=== PATIENT | male | born 1960 | race Caucasian/White ===

== ENCOUNTER → 2016-08-08 11:08 | Outpatient (CLI) | payer BC | END | disposition home or self-care (01) | LOC: D.MRI 11:08 | DX: R26.9 Unspecified abnormalities of gait and mobility (principal); R41.9 Unspecified symptoms and signs involving cognitive functions and awareness ==

== ENCOUNTER 2017-07-09 11:05 | Observation (INO) | payer BC ==
[~2017-07-09] VITALS: Ht 182.9 cm; Wt 79.4 kg
--- NOTE | ~2017-07-09 | HEMODYNAMI ---
PATIENT:ADRY MARTINEZ MEDICAL RECORD: [id number] : 56 LOCATION:[address] ADMISSION DATE: 07/09/17 Generatedon:07/10/20177:50 Patient name: ADRY MARTINEZ Patient #: [id number] SSN: : 1960 Date of study: 07/10/2017 Page: Of Hemodynamic Procedure Report Patient Data Patient Demographics Procedure consent was obtained First Name: ADRY Gender: Male Last Name: JUAN : 1960 [facility] Initial: TOMA Age: 57 year(s) Patient #: [id number] Race: Unknown Additional ID: [id number] Contact details Address: [address] State: [place] City: [facility] Zip code: [address] Admission Admission Data Admission Date: 07/09/2017 Admission Time: 13:11 Room #: [facility] Lab Results Lab Result Date: 07/10/2017 Lab Result Time: 0:00 Biochemistry Name Units Result Min Max BUN mg/dl 22 --(----)-* 7 18 Creatinine mg/dl 1.6 --(----)-* 0.6 1.3 CBC Name Units Result Min Max Hemoglobin g/dl 12.1 *-(----)-- 13.5 17.5 Procedure Procedure Types Cath Procedure Diagnostic Procedure LHC LHC w/Coronaries Miscellaneous Procedures Moderate Sedation up to 15 minutes Procedure Description Procedure Date Procedure Date: 07/10/2017 Procedure Start Time: 7:33 Procedure End Time: 7:50 Procedure Staff Name Function Laci Spivey MD Performing Physician Abdi Faustin RT Monitor Berenice Shelton RT Scrub Todd Jade RN Nurse Procedure Data Cath Procedure Fluoroscopy Diagnostic fluoroscopy Total fluoroscopy Time: 1.6 time: 1.6 min min Diagnostic fluoroscopy Total fluoroscopy dose: 387 dose: 387 mGy mGy Contrast Material Contrast Material Type Amount (ml) Isovue 300 59 Entry Location Entry Primary Successful Side Size Upsize Upsize Entry Closure Succes sful Closure Location (Fr) 1 (Fr) 2 (Fr) Remarks Device Remarks Femoral Right 5 Fr Exoseal artery Estimated blood loss: 10 ml Diagnostic catheters Device Type Used For End Catheter Placement MULTIPACK JL 4.0 5Fr Procedure catheter MULTIPACK 3DRC 5Fr Procedure catheter MULTIPACK Pigtail 5 Fr Procedure catheter Procedure Complications No complications Procedure Medications Medication Administration Route Dosage Oxygen NC 2 l/min Lidocaine 2% added to field 20 Heparin Flush Bag added to field 2 bags (1000units/500ml NS) 0.9% NaCl I.V. 100 ml/hr Versed I.V. 1 mg Fentanyl I.V. 50 mcg Versed I.V. 1 mg Fentanyl I.V. 50 mcg Versed I.V. 0.5 mg Fentanyl I.V. 25 mcg Radial Cocktail added to field 1 syringe (Verapomil 2mg/Nitro 400mcg/Heparin 1500units) Hemodynamics Rest HGB: 12.1 (g/dl) Heart Rate: 63 (bpm) Pressure Samples Time Site Value (mmHg) Purpose Heart Use Rate(bpm) 7:44 LV 96/7,15 Snapshot 81 7:45 AO 101/64(82) Pullback 74 7:45 LV 106/8,19 Pullback 74 Gradients Valve Time Site 1 Site 2 Mean SEP/DFP Peak To Heart Use (mmHg) (sec/min) Peak Rate (mmHg) (bpm) Aortic 7:45 LV AO 7 16 5 74 106/8,19 101/64(82) Calculations Valve P-P Mean Valve Index Valve Source Name Gradient Area Flow (cm2) Aortic 5 7 5 7 Snapshots Pre Cath Intra NCS Post Cath Vital Signs Time Heart Resp SPO2 etCO2 NIBP Rhythm Pain Sedation Rate (ipm) (%) (mmHg) (mmHg) Status Level (bpm) 7:15:40 65 15 97 0 111/76(90) NSR 0 (11) 10(A) , No pain 7:20:16 65 17 99 34.6 115/76(92) NSR 0 (11) 10(A) , No pain 7:24:55 68 16 97 34.6 111/69(85) NSR 0 (11) 10(A) , No pain 7:29:33 71 14 96 0 110/71(80) NSR 0 (11) 10(A) , No pain 7:34:10 71 15 94 13.5 103/68(79) NSR 0 (11) 9(A) , No pain 7:38:47 69 15 95 37.6 103/69(85) NSR 0 (11) 9(A) , No pain 7:43:23 75 17 96 30.1 98/67(81) NSR 0 (11) 9(A) , No pain 7:47:58 73 16 94 12.8 106/67(78) NSR 0 (11) 10(A) , No pain Medications Time Medication Route Dose Verified Delivered Reason Notes Effectiveness by by 7:08:19 Oxygen NC 2 l/min Laci Buffie used for Patric Jade RN procedure 7:08:28 Lidocaine 2% added 20ml Laci Laci for local to vial Patric Spivey MD anesthetic field 7:08:34 Heparin Flush added 2 bags Laci Laci used for Bag to Patric Spivey MD procedure (1000units/500ml field NS) 7:08:44 0.9% NaCl I.V. 100 Laci Buffie Per ml/hr Patric Jade RN physician 7:10:11 Radial Cocktail added 1 Laci Buffie not used, (Verapomil to syringe Patric Jade RN femoral 2mg/Nitro field access 400mcg/Heparin obtained. 1500units) 7:24:10 Versed I.V. 1 mg Laci Buffie for Patric Jade RN sedation 7:24:17 Fentanyl I.V. 50 mcg Laci Buffie for Patric Jade RN sedation 7:28:52 Versed I.V. 1 mg Laci Buffie for Patric Jade RN sedation 7:28:56 Fentanyl I.V. 50 mcg Laci Buffie for Patric Jade RN sedation 7:35:00 Versed I.V. 0.5 mg Laci Buffie for Patric Jade RN sedation 7:35:06 Fentanyl I.V. 25 mcg Laci Buffie for Patric Jade RN sedation Procedure Log Time Note 6:57:07 Time tracking: Regular hours 6:57:12 Plan of Care:Hemodynamics will remain stable., Cardiac rhythm will remain stable., Comfort level will be maintained., Respiratory function will remain adequate., Patient/ family verbilizes understanding of procedure., Procedure tolerated without complication., Recovers from procedure without complications.. 6:57:14 Todd Jade RN sent for patient. Start room use. 6:58:10 H&P Date Dictated: 07/09/2017 Within 30 days and on chart.. 6:58:38 Lab Result : BUN 22 mg/dl 6:58:38 Lab Result : Hemoglobin 12.1 g/dl 6:58:38 Lab Result : Creatinine 1.6 mg/dl 7:08:19 Oxygen 2 l/min NC was administered by Todd Jade RN; used for procedure; 7:08:28 Lidocaine 2% 20ml vial added to field was administered by Laci Spivey MD; for local anesthetic; 7:08:34 Heparin Flush Bag (1000units/500ml NS) 2 bags added to field was administered by Laci Spivey MD; used for procedure; 7:08:44 0.9% NaCl 100 ml/hr I.V. was administered by Todd Jade RN; Per physician; 7:09:59 Patient received from Med II to CCL 1 Alert and oriented. Tansferred to table in Supine position. 7:10:00 Warm blankets applied, and cecilio hugger turned on for patient comfort. 7:10:00 Correct patient and procedure confirmed by team. 7:10:02 Signed procedure consent form obtained from patient. 7:10:02 ECG and BP/O2 sat monitors applied to patient. 7:10:11 Radial Cocktail (Verapomil 2mg/Nitro 400mcg/Heparin 1500units) 1 syringe added to field was administered by Todd Jade RN; ; not used, femoral access obtained. 7:14:50 Vital chart was started 7:22:02 Baseline sample Acquired. 7:22:12 Rhythm: sinus rhythm 7:22:18 Full Disclosure recording started 7:22:22 Pre-procedure instructions explained to patient. 7:22:22 Pre-op teaching completed and patient verbalized understanding. 7:22:28 Family in patients room. 7:22:29 Patient NPO since Midnight. 7:22:31 Is the patient allergic to Iodine/contrast media? No. 7:22:33 Is patient on blood thinner?No 7:22:35 Patient diabetic? No. 7:22:38 Previous problem with sedation/anesthesia? No ? 7:22:39 Snore? Yes 7:22:40 Sleep apnea? No 7:22:41 Deviated septum? No 7:22:41 Opens mouth fully? Yes 7:22:42 Sticks out tongue? Yes 7:22:44 Airway obstruction? No ? 7:22:46 Dentures? No ? 7:22:48 Pre procedure: right dorsailis pedis pulse 1+ Palpable, but thready & weak; easily obliterated 7:22:51 Modified John Paul's test Ulnar < 7 seconds 7:22:53 Patient pain scale 0/10 ?. 7:22:58 IV patent on arrival in right hand with 0.9% NaCl at O. 7:22:59 Lab results completed and on chart. 7:23:03 Right Radial & Right Groin area was prepped with chlora-prep and draped in sterile fashion 7:23:05 Alarms reviewed by R. N. 7:23:06 Sharps counted by scrub and verified by R.N. 7:23:07 --------ALL STOP TIME OUT------ 7:23:08 Final Timeout: patient, procedure, and site verified with staff and physician. All members of the team are in agreement. 7:23:11 Right Radial & Right Groin site verified by team. 7:23:14 Physical assessment completed. ASA score P 2 - A patient with mild systemic disease as per Laci Spivey MD. 7:23:18 Sedation plan: IV Moderate Sedation Medication:Versed, Fentanyl 7:24:10 Versed 1 mg I.V. was administered by Todd Jade RN; for sedation; 7:24:17 Fentanyl 50 mcg I.V. was administered by Todd Jade RN; for sedation; 7:24:24 Use device set Radial Dx 7:24:28 Tegaderm 4 x 4 (1626W) opened to sterile field. 7:24:29 ACIST Hand Control (24360) opened to sterile field. 7:24:30 ACIST Manifold (35440) opened to sterile field. 7:24:33 ACIST Syringe (20543) opened to sterile field. 7:24:33 Medline Cath Pack ([id number]) opened to sterile field. 7:24:34 Bag Decanter () opened to sterile field. 7:24:35 DIAGNOSTIC WIRE .035 260cm J wire (491635) opened to sterile field. 7:24:35 MBrace Wrist Support ([id number]) opened to sterile field. 7:24:36 NEEDLE Cook 21G 4cm Radial (G62749) opened to sterile field. 7:28:52 Versed 1 mg I.V. was administered by Todd Jade RN; for sedation; 7:28:56 Fentanyl 50 mcg I.V. was administered by Todd Jade RN; for sedation; 7:33:15 Procedure started. 7:33:26 Local anesthetic to right radial artery with Lidocaine 2% by Laci Spivey MD.INITIAL ACCESS ONLY 7:35:00 Versed 0.5 mg I.V. was administered by Todd Jade RN; for sedation; 7:35:06 Fentanyl 25 mcg I.V. was administered by Todd Jade RN; for sedation; 7:35:46 Unable to gain radial access (too small per physician). Moving to femoral approach. 7:36:00 Use device set Multipack Set 7:36:02 SHEATH 5FR Mckinney (YQJ288) opened to sterile field. 7:36:04 DIAGNOSTIC Multipack 5Fr catheter set (WW2869) opened to sterile field. 7:36:16 NEEDLE Cook 18G 7cm Percutaneous Entry needle (L71546) opened to sterile field. 7:36:24 Local anesthetic to right femoral artery with Lidocaine 2% by Laci Spivey MD.ADDITIONAL ACCESS 7:38:59 A 5 Fr sheath was inserted into the Right Femoral artery 7:39:54 A MULTIPACK JL 4.0 5Fr catheter was advanced over the wire and used for Procedure. 7:40:11 LCA angiography performed. 7:40:56 Catheter exchanged over wire. 7:41:29 A MULTIPACK 3DRC 5Fr catheter was advanced over the wire and used for Procedure. 7:42:39 RCA angiography performed. 7:43:14 Catheter exchanged over wire. 7:43:26 A MULTIPACK Pigtail 5 Fr catheter was advanced over the wire and used for Procedure. 7:44:43 LV angiography performed. 7:44:44 LV gram done using BRAVO 7:45:00 EF : 55 % 7:45:13 LV hemodynamics recorded. 7:45:17 Injector settings: Ml/sec: 7, Volume: 15, 7:45:34 Catheter removed. 7:45:42 EXOSEAL 5Fr (EX500) opened to sterile field. 7:46:12 Sheath removed intact; hemostasis achieved with Exoseal to the Right Femoral artery. 7:46:22 Procedure ended.(Physican Out) 7:46:34 Fluoroscopy time 01.60 minutes. 7:46:38 Fluoroscopy dose: 387 mGy 7:46:38 Flurop Dose total: 387 7:46:43 Contrast amount:Isovue 300 59ml. 7:46:45 Sharps counted by scrub and verified by R.N. 7:46:48 Insertion/operative site no bleeding no hematoma. 7:46:58 Post-op/insertion site Right Femoral artery dressed using a 4 x 4 and Tegaderm. 7:47:00 Post Procedure Pulses reassessed and unchanged 7:47:03 Post-procedure physical assessment completed. ASA score P 2 - A patient with mild systemic disease as per Laci Spivey MD. 7:47:05 Post procedure rhythm: unchanged. 7:47:08 Estimated blood loss: 10 ml 7:47:11 Post procedure instruction explained to patient.Patient verbalizes understanding. 7:47:11 Patient needs reinforcement of post procedure teaching. 7:47:24 Procedure Complication : No complications 7:48:04 IV Extension Set opened to sterile field. 7:50:15 Procedure and supply charges have been captured, reviewed, submitted and are correct. 7:50:17 Vital chart was stopped 7:50:24 See physician's report for complete and final results. 7:50:28 Report given to PCU. 7:50:30 Patient transfered to PCU with Bed. 7:50:32 Procedure ended. 7:50:32 Full Disclosure recording stopped 7:50:38 End room use (Document Last) Device Usage Item Name Manufacture Quantity Catalog Hospital Part Current Minima l Lot# / Number Charge Number Stock Stock Serial# Code Tegaderm 4 x 3M 1 1626W [id number] 445557 [id number] 5 4 (1626W) ACIST Hand Acist 1 47592 389028 451151 218094 5 Control Medical (48354) Systems Inc ACIST Acist 1 72432 347456 032444 423194 5 Manifold Dekkun (26901) Systems Inc ACIST Acist 1 54775 076962 286410 550501 20 Syringe Dekkun (34749) Systems Inc Medline Cath Cardinal 1 [id number] 609920 49667 270572 5 Pack Health ([id number]) Bag Decanter Microtek 1 2001S 522161 49272 927611 5 () Medical Inc. DIAGNOSTIC St Basim 1 059342 406170 347851 070289 30 WIRE .035 260cm J wire (696688) MBrace Wrist Advanced 1 140-0250-00 305649 97310 010092 5 Support Vascular (090655426) Dynamics NEEDLE Cook Cook Medical 1 O72597 017869 363762 870819 5 21G 4cm Radial (I83852) SHEATH 5FR Terumo 1 SAE773 196404 851315 510668 40 Mckinney (IKC055) DIAGNOSTIC Cardinal 1 UB4300 365101 06466 351545 30 Multipack Health 5Fr catheter set (PY5533) NEEDLE R-Health Cook Medical 1 D73334 032526 05338 175070 5 18G 7cm Percutaneous Entry needle (Z35761) MULTIPACK JL Cardinal 1 118847 5 4.0 5Fr Health catheter MULTIPACK Cardinal 1 661100 5 3DRC 5Fr Health catheter MULTIPACK Cardinal 1 700120 5 Pigtail 5 Fr Health catheter EXOSEAL 5Fr Cardinal 1 EX500 643149 199948 730981 10 (EX500) Health IV Extension Hospira 1 64517-31 873217 10168 425999 5 Set Signature Audit [place] Stage Time Signature Unsigned Intra-Procedure 07/10/2017 Abdi Faustin 7:50:49 AM RT(R) Signatures Monitor : Abdi Faustin RT Signature : Date : Time : [facility] [address] [facility] [address]
[2017-07-09 11:29] LABS: BASOPHILS 0.3 % (0-2); EOSINOPHILS 0.5 % (0-7); HEMOGLOBIN 12.5 g/dL (13.5-17.5); IMMATURE GRANULOCYTES 0.2 % (0-5); LYMPHOCYTES 30.8 % (15-50); MCHC 32.9 g/dL (31.0-37.0); MEAN PLATELET VOLUME 10.4 fL (7.4-10.4); MONOCYTES 8.4 % (2-11); NEUTROPHILS 59.8 % (40-80); PLATELET COUNT 233 10x3/uL (130-400); RBC 4.81 10x6/uL (4.20-6.10); RDW 12.9 % (11.5-14.5); WBC 5.8 10x3/uL (4.8-10.8)
[2017-07-09 11:53] LABS: ALBUMIN 3.2 g/dL (3.4-5.0); ALKALINE PHOSPHATASE 93 U/L (46-116); ALT (SGPT) 31 U/L (10-68); BILIRUBIN - TOTAL 0.76 mg/dL (0.2-1.3); CALC OSMOLALITY 281 mosm/kg (275-300); CALCIUM 8.8 mg/dL (8.5-10.1); CARBON DIOXIDE 27.9 mmol/L (21.0-32.0); CHLORIDE - SERUM 104 mmol/L (98-107); CREATININE - SERUM 1.6 mg/dL (0.6-1.3); GLUCOSE 117 mg/dL (74-106); POTASSIUM - SERUM 4.2 mmol/L (3.5-5.1); SODIUM 139 mmol/L (136-145); UREA NITROGEN 22 mg/dL (7-18); eGFR NON AFRICAN AMERICAN 47 mL/min (90-120)
[2017-07-09 12:04] LABS: CHOL - HDL RATIO 3.3 ratio (2.3-4.9); CHOLESTEROL, TOTAL 177 mg/dL (0-200); CREATINE KINASE 170 UL (21-232); HDL CHOLESTEROL 53 mg/dL (32-96); LDL CHOLESTEROL 110 mg/dL (0-100); LDL-HDL RATIO 2.1 ratio (1.5-3.5); PRO BNP 155 pg/mL (0-125); TRIGLYCERIDE 70 mg/dL (30-200)
[2017-07-09 12:09] LABS: TROPONIN-I < 0.017 ng/mL (0.000-0.060)
--- NOTE | 2017-07-09 14:38 | NUR ---
PATIENT TO ROOM VIA WHEELCHAIR FROM ER. PATIENT IS ALERT AND ORIENTED AT THIS TIME. IS AT BEDSIDE, PATIENT HAS A L HAND IV WITH NS INFUSING AT 50ML/HR. PATIENT IS BEING ADMITTED FOR CHEST PAIN, PATIENT DENIES ANY CURRENT CHEST PAIN. BED IS LOW AND LOCKED. CALL LIGHT IN RERACH. WILL CONT TO MONITOR PATIENT. CPOC
[2017-07-09] MEDS ORDERED: BUPROPION XL300 MG PO (14:41)
[2017-07-09 14:49] VITALS: BMI 23.3
--- NOTE | 2017-07-09 16:00 | NUR ---
EKG DONE PER ORDER. PATIENT IS RESTING, DENIES ANY NEEDS. NSR ON MONITOR WITH A RATE OF 70. CPOC
[2017-07-09 16:31] VITALS: BP 124/82
--- NOTE | 2017-07-09 17:09 | NUR ---
PATIENT EATING DINNER, DENIES ANY NEEDS AT THIS TIME, CPOC
--- NOTE | 2017-07-09 18:12 | NUR ---
ROUNDS MADE, INFORMED PATIENT, SHIFT CHANGE WAS NEAR. PATIENT DENIES ANY NEEDS AT THIS TIME. CPOC
[2017-07-09 18:28] VITALS: Ht 182.9 cm; Wt 79.4 kg
[2017-07-09 19:00] VITALS: BP 116/74
--- NOTE | 2017-07-09 19:40 | NUR ---
PT RESTING IN BED. AT BED SIDE. PT IS AAO X4. PT DENIES ANY NEEDS. NO S/S OF DISTRESS. BED LOW AND CALL LIGHT IN REACH. PT DENIES ANY QUESTIONS OR CONCERNS ABOUT HEART CATH IN MORNING. WILL CPOC
--- NOTE | 2017-07-10 00:20 | NUR ---
PT RESTING IN BED. VERBALIZES UNDERSTANDING OF NPO AFTER MN. PT DENIES ANY NEEDS. NO S/S OF DISTRESS. WILL CPOC
[2017-07-10 04:00] VITALS: BP 136/86
--- NOTE | 2017-07-10 06:13 | NUR ---
SHOWCASE TRIMMER CALLED FOR PREOP. PCU PIXCUS IS BEING COUNTED AT THIS TIME. WILL PULL MEDS AND PREOP PT LEANDRA
[2017-07-10 06:17] LABS: BASOPHILS 0.2 % (0-2); HEMATOCRIT 37.2 % (42.0-54.0); HEMOGLOBIN 12.1 g/dL (13.5-17.5); IMMATURE GRANULOCYTES 0.2 % (0-5); LYMPHOCYTES 39.1 % (15-50); MCHC 32.5 g/dL (31.0-37.0); MEAN PLATELET VOLUME 10.7 fL (7.4-10.4); NEUTROPHILS 50.5 % (40-80); PLATELET COUNT 227 10x3/uL (130-400); RBC 4.65 10x6/uL (4.20-6.10); WBC 5.9 10x3/uL (4.8-10.8)
[2017-07-10 06:46] LABS: % SATURATION 20 % (15-55); IRON 50 ug/dl (35-150); TOTAL IRON BIND CAPACITY 245 ug/dl (260-445); UNSAT IRON BIND CAPACITY 195 ug/dl (150-375)
[2017-07-10 06:57] LABS: CALCIUM 8.6 mg/dL (8.5-10.1); CARBON DIOXIDE 27.4 mmol/L (21.0-32.0); CREATININE - SERUM 1.3 mg/dL (0.6-1.3); POTASSIUM - SERUM 4.4 mmol/L (3.5-5.1)
--- NOTE | 2017-07-10 07:55 | NUR ---
PATIENT RETURNS FROM MANAGER WINTER AT THIS TIME WITH CATH SITE TO RIGHT GROIN. DRESSING INTACT. NO PROBLEMS NOTED. TELEMETRY RESUMED, SINUS RHYTHM HR 86. PATIENT LAYING FLAT, IS AT BEDSIDE
--- NOTE | 2017-07-10 09:41 | NUR ---
POST -OP CATH. VS WNL. RESP UL ON . IV PATENT. AT BS. WILL CONT. PLAN OF CARE.
[2017-07-10 12:12] VITALS: BP 117/81
--- NOTE | 2017-07-10 16:07 | NUR ---
DISCHARGE INSUTRUCTIONS REVIEWED WITH PATIENT AND PATIENT'S . CATH SITE CLEAR, NO DRAINAGE, NO BLEEDING, AND SOFT WITH NO PROBLEMS NOTED AT THIS TIME. PATIENT ABLE TO AMBULATE WITH NO PROBLEM. PATIENT SIGNED DISCHARGE PAPERWORK AND LEFT FACILITY AT THIS TIME VIA PRIVATE TRANSPORTATION.
== END 2017-07-10 16:10 | disposition home or self-care (01) ==
LOC: D.ER 11:05 → D.M2 13:11 → OBSVTIME 13:11 → D.M2 07-10 16:10
PROVIDERS: Emergency Medicine; ADMIT Family Medicine
DX: R07.89 Other chest pain (principal); R06.00 Dyspnea, unspecified; F32.9 Major depressive disorder, single episode, unspecified